=== PATIENT | female | born 1950 ===

== ENCOUNTER 2021-01-03 07:10 | Day surgery (SDC) | payer OTHER ==
[~2021-01-03 07:10] MED LIST: AMILORIDE HCL5 MG PO; COZAAR100 MG PO; GLUMETZA500 MG PO
== END 2021-01-03 15:40 | disposition home or self-care (01) ==
LOC: CIR.AMB 07:10
PROVIDERS: ATTEND Orthopaedic Surgery Hand Surgery
DX: M65.331 Trigger finger, right middle finger (principal); Z20.822 Contact with and (suspected) exposure to COVID-19